=== PATIENT | male | born 1975 | race Caucasian/White ===

== ENCOUNTER 2017-06-21 23:20 | Emergency (ER) | payer SELFPAY ==
[~2017-06-21] VITALS: Ht 177.8 cm; Wt 81.8 kg
[2017-06-21 23:22] VITALS: BP 147/89
== END 2017-06-22 00:10 | disposition left against medical advice (07) ==
LOC: ED 23:59
DX: R10.9 Unspecified abdominal pain (principal); R19.7 Diarrhea, unspecified; Z53.21 Procedure and treatment not carried out due to patient leaving prior to being seen by health care provider

== ENCOUNTER 2017-06-23 03:10 | Emergency (ER) | payer SELFPAY ==
[~2017-06-23] VITALS: Ht 188 cm; Wt 82.2 kg
[2017-06-23] MEDS ORDERED: LORazepam 1MG TABLET ONE (03:40)
[2017-06-23] MEDS ORDERED: KETOROLAC 30 MG/1 ML ONE (03:40)
[2017-06-23 03:50] LABS: HEMATOCRIT 38.4 % (39.2-51.8); HEMOGLOBIN 12.9 g/dL (13.7-18.0); WHITE BLOOD COUNT 7.1 x10^3/uL (3.4-10)
[2017-06-23 03:58] LABS: BLOOD UREA NITROGEN 11 mg/dL (7-18)
[2017-06-23] MEDS ORDERED: LORazepam 1MG TABLET PO ONE (04:00)
[2017-06-23] MEDS ORDERED: KETOROLAC 30 MG/1 ML IM ONE (04:00)
[2017-06-23 04:04] LABS: IS PT STATUS REG ER OR PRE ER? YES
[2017-06-23 04:18] VITALS: BP 124/72
== END 2017-06-23 04:24 | disposition home or self-care (01) ==
LOC: ED 03:59
DX: R07.89 Other chest pain (principal); R51 Headache; F15.10 Other stimulant abuse, uncomplicated; B19.20 Unspecified viral hepatitis C without hepatic coma
CPT/HCPCS: 36415; 71020; 80048; 84484; 85025; 93005; 96372; 99285; J1885

== ENCOUNTER 2017-06-23 12:47 | Emergency (ER) | payer SELFPAY ==
[~2017-06-23] VITALS: Ht 185.4 cm; Wt 85.0 kg
[2017-06-23] MEDS ORDERED: SODIUM CHLORIDE FLUSH 10ML SYR IVF ONE (13:30)
[2017-06-23] MEDS ORDERED: ASPIRIN 81 MG TABLET CHEW PO ONE (13:30)
[2017-06-23 13:34] LABS: HEMATOCRIT 37.2 % (39.2-51.8); HEMOGLOBIN 12.3 g/dL (13.7-18.0); WHITE BLOOD COUNT 7.1 x10^3/uL (3.4-10)
[2017-06-23] MEDS ORDERED: ASPIRIN 81 MG TABLET CHEW ONE (13:35)
[2017-06-23 13:46] LABS: BLOOD UREA NITROGEN 13 mg/dL (7-18)
[2017-06-23 13:50] LABS: IS PT STATUS REG ER OR PRE ER? YES
[2017-06-23] MEDS ORDERED: ONDANSETRON 2MG/ML, 2ML ONE (14:17)
[2017-06-23] MEDS ORDERED: MORPHINE SULFATE 4 MG/ML, 1ML ONE ×2 (14:17→14:44)
[2017-06-23] MEDS: MORPHINE SULFATE 4 MG/ML, 1ML IVPush PRN ×2 (14:20→14:50)
[2017-06-23] MEDS ORDERED: OMNIPAQUE 350 MG/ML, 100ML BOTTLE ONE (14:57)
[2017-06-23 15:23] VITALS: BP 128/77
[2017-06-23] MEDS ORDERED: MAGNESIUM CITRATE 300ML ORAL SOL ONE (15:29)
[2017-06-23] MEDS ORDERED: MAGNESIUM CITRATE 300ML ORAL SOL PO ONE (15:30)
== END 2017-06-23 15:25 | disposition home or self-care (01) ==
LOC: ED 13:42
DX: K59.00 Constipation, unspecified (principal); F17.200 Nicotine dependence, unspecified, uncomplicated; B19.20 Unspecified viral hepatitis C without hepatic coma
CPT/HCPCS: 36415; 71010; 71275; 74177; 80048; 80076; 82040; 83690; 84484; 85025; 93005; 96374; 99285; Q9967

== ENCOUNTER 2017-06-24 10:52 | Inpatient (IN) | payer MEDICAID, OTHER ==
[~2017-06-24] VITALS: Ht 185.4 cm; Wt 84.1 kg
[2017-06-24] MEDS ORDERED: IBUPROFEN 200 MG TABLET ONE (12:48)
[2017-06-24] MEDS ORDERED: ONDANSETRON 2MG/ML, 2ML ONE (12:48)
[2017-06-24] MEDS ORDERED: SODIUM CHLORIDE FLUSH 10ML SYR IVF ONE (13:00)
[2017-06-24] MEDS ORDERED: IBUPROFEN 200 MG TABLET PO ONE (13:00)
[2017-06-24] MEDS ORDERED: SODIUM CHLORIDE 0.9% 1,000ML IVBOLUS ONE ×2 (13:00→14:00)
[2017-06-24] MEDS ORDERED: ONDANSETRON 2MG/ML, 2ML IVPush ONE (13:00)
[2017-06-24 13:12] LABS: HEMATOCRIT 38.3 % (39.2-51.8); HEMOGLOBIN 12.7 g/dL (13.7-18.0); WHITE BLOOD COUNT 8.7 x10^3/uL (3.4-10)
[2017-06-24 13:16] LABS: BLOOD UREA NITROGEN 9 mg/dL (7-18)
[2017-06-24] MEDS ORDERED: ACETAMINOPHEN 500 MG TABLET ONE (14:00)
[2017-06-24] MEDS ORDERED: ACETAMINOPHEN 500 MG TABLET PO ONE (14:00)
[2017-06-24] MEDS ORDERED: MORPHINE SULFATE 4 MG/ML, 1ML ONE ×2 (15:22→16:32)
[2017-06-24] MEDS: MORPHINE SULFATE 4 MG/ML, 1ML IVPush PRN ×2 (15:25→17:06)
[2017-06-24] MEDS ORDERED: CEFTRIAXONE PMX 1GM/50ML 50 ML IV ONE (16:00)
[2017-06-24] MEDS ORDERED: CEFTRIAXONE PMX 1GM/50ML 50 ML ONE (16:32)
[2017-06-24] MEDS ORDERED: OMNIPAQUE 350 MG/ML, 100ML BOTTLE ONE (16:36)
[2017-06-24] MEDS ORDERED: AZITHROMYCIN 500 MG in SODIUM CHLORIDE 0.9% 250 ML IV ONE (17:00)
[2017-06-24] MEDS ORDERED: hydrALAzine 20 MG/ML, 1ML IVPush PRN (18:00)
[2017-06-24] MEDS ORDERED: CEFTRIAXONE PMX 2GM/50ML 50 ML IV SCH (18:00)
[2017-06-24] MEDS ORDERED: ONDANSETRON 2MG/ML, 2ML IVPush PRN (18:00)
[2017-06-24] MEDS ORDERED: ACETAMINOPHEN 325 MG TABLET PO PRN (18:00)
[2017-06-24 18:37] LABS: HIV 1&2 ANTIBODY SCREEN Nonreactive (Nonreactive); HIV-1 p24 ANTIGEN Nonreactive (Nonreactive)
[2017-06-24 20:29] VITALS: BP 128/85
[2017-06-24] MEDS: SODIUM CHLORIDE 0.9% 1,000 ML IV SCH (20:33)
[2017-06-24] MEDS: morphine SULFATE 10 MG/ML, 1ML IVPush PRN ×2 (20:33→23:47)
[2017-06-24] MEDS: NICOTINE 14MG/24 HR PATCH.TD24 TD SCH (20:44)
[2017-06-24] MEDS: LORazepam 2 MG/ML, 1ML IVPush PRN (21:30)
[2017-06-25] VITALS (7 sets, daily range): BP systolic 107–130; BP diastolic 72–82
[2017-06-25] MEDS: HYDROcodone/APAP 5/325 TABLET PO PRN ×4 (01:17→21:21)
[2017-06-25] MEDS: morphine SULFATE 10 MG/ML, 1ML IVPush PRN ×5 (03:17→23:22)
[2017-06-25] MEDS: SODIUM CHLORIDE 0.9% 1,000 ML IV SCH ×3 (03:19→16:20)
[2017-06-25] MEDS ORDERED: FLU VACC QS2017-18 (36MOS+) UP/PF 0.5 ML IM-VACC ONE (04:30)
[2017-06-25] MEDS ORDERED: PNEUMOCOCCAL 23 VACCINE IM-VACC ONE (04:30)
[2017-06-25 06:20] LABS: HEMATOCRIT 33.2 % (39.2-51.8); HEMOGLOBIN 11.1 g/dL (13.7-18.0); WHITE BLOOD COUNT 10.7 x10^3/uL (3.4-10)
[2017-06-25 06:40] LABS: ASPARTATE AMINO TRANSFERASE 11 U/L (15-37); BLOOD UREA NITROGEN 7 mg/dL (7-18); TOTAL IRON BINDING CAPACITY 315 mcg/dL (250-450)
[2017-06-25] MEDS ORDERED: VANCOMYCIN PER PHARMACY MC PRN (14:30)
[2017-06-25] MEDS ORDERED: VANCOMYCIN 0 MG in SODIUM CHLORIDE 0.9% 100 ML IV ONE (14:30)
[2017-06-25] MEDS ORDERED: PHARMACOKINETIC CONSULTATION MC ONE (15:00)
[2017-06-25] MEDS ORDERED: PHARMACOKINETIC MONITORING MC PRN (15:00)
[2017-06-25] MEDS: LORazepam 2 MG/ML, 1ML IVPush PRN (15:09)
[2017-06-25] MEDS ORDERED: POTASSIUM PHOSPHATE 44 MEQ in SODIUM CHLORIDE 0.9% 500 ML IV ONE (16:00)
[2017-06-25] MEDS ORDERED: AZITHROMYCIN 500 MG in SODIUM CHLORIDE 0.9% 250 ML IV SCH (17:00)
[2017-06-25] MEDS ORDERED: GADOBUTROL 7.5 MMOL/7.5 ML PFS ONE (17:12)
[2017-06-25] MEDS: NICOTINE 14MG/24 HR PATCH.TD24 TD SCH (17:59)
[2017-06-25] MEDS: PIPERACILLIN/TAZO/PMX 3.375GM 50 ML IV SCH (17:59)
[2017-06-25] MEDS: VANCOMYCIN 1,600 MG in SODIUM CHLORIDE 0.9% 250 ML IV SCH (18:19)
[2017-06-26] MEDS: PIPERACILLIN/TAZO/PMX 3.375GM 50 ML IV SCH ×4 (00:05→18:22)
[2017-06-26] MEDS: SODIUM CHLORIDE 0.9% 1,000 ML IV SCH ×3 (00:05→18:21)
[2017-06-26 00:20] VITALS: BP 118/78
[2017-06-26] MEDS: morphine SULFATE 10 MG/ML, 1ML IVPush PRN ×4 (04:05→19:22)
[2017-06-26 06:12] LABS: HEMATOCRIT 32.7 % (39.2-51.8); HEMOGLOBIN 10.9 g/dL (13.7-18.0)
[2017-06-26 06:22] LABS: BLOOD UREA NITROGEN 11 mg/dL (7-18)
[2017-06-26] MEDS: HYDROcodone/APAP 5/325 TABLET PO PRN ×2 (07:05→18:22)
[2017-06-26] MEDS: VANCOMYCIN 1,600 MG in SODIUM CHLORIDE 0.9% 250 ML IV SCH ×2 (07:05→19:23)
[2017-06-26 07:59] VITALS: BP 128/88
[2017-06-26 12:22] LABS: HEMATOCRIT 33.9 % (39.2-51.8); HEMOGLOBIN 11.2 g/dL (13.7-18.0); WHITE BLOOD COUNT 8.3 x10^3/uL (3.4-10)
[2017-06-26 14:45] VITALS: BP 126/85
[2017-06-26] MEDS: NICOTINE 14MG/24 HR PATCH.TD24 TD SCH (18:00)
[2017-06-26] MEDS: FERROUS SULFATE 325 MG TABLET PO SCH (18:22)
[2017-06-26 19:52] VITALS: BP 130/80
[2017-06-26] MEDS ORDERED: VANCOMYCIN PER PHARMACY MC PRN (20:00)
[2017-06-26] MEDS ORDERED: ACETAMINOPHEN 325 MG TABLET PO PRN (20:00)
[2017-06-26] MEDS ORDERED: ONDANSETRON 2MG/ML, 2ML IVPush PRN (20:00)
[2017-06-26] MEDS ORDERED: hydrALAzine 20 MG/ML, 1ML IVPush PRN (20:00)
[2017-06-26] MEDS ORDERED: PHARMACOKINETIC MONITORING MC PRN (20:00)
[2017-06-27] MEDS: HYDROcodone/APAP 5/325 TABLET PO PRN ×4 (00:30→17:12)
[2017-06-27] MEDS: SODIUM CHLORIDE 0.9% 1,000 ML IV SCH ×3 (00:31→20:55)
[2017-06-27] MEDS: PIPERACILLIN/TAZO/PMX 3.375GM 50 ML IV SCH ×2 (00:31→06:29)
[2017-06-27 01:05] VITALS: BP 125/75
[2017-06-27] MEDS: morphine SULFATE 10 MG/ML, 1ML IVPush PRN ×5 (02:53→20:56)
[2017-06-27 06:24] LABS: HEMATOCRIT 33.1 % (39.2-51.8); WHITE BLOOD COUNT 6.3 x10^3/uL (3.4-10)
[2017-06-27 06:36] LABS: ASPARTATE AMINO TRANSFERASE 18 U/L (15-37); BLOOD UREA NITROGEN 10 mg/dL (7-18)
[2017-06-27] MEDS: VANCOMYCIN 1,600 MG in SODIUM CHLORIDE 0.9% 250 ML IV SCH (07:58)
[2017-06-27] MEDS: FERROUS SULFATE 325 MG TABLET PO SCH ×3 (07:58→17:11)
[2017-06-27 08:08] VITALS: BP 117/80
[2017-06-27] MEDS: CEFAZOLIN PMX 2GM/50ML 50 ML IVPB SCH ×2 (11:30→20:55)
[2017-06-27 14:30] VITALS: BP 118/78
[2017-06-27] MEDS: NICOTINE 14MG/24 HR PATCH.TD24 TD SCH (17:12)
[2017-06-27 19:59] VITALS: BP 129/81
[2017-06-28] MEDS: morphine SULFATE 10 MG/ML, 1ML IVPush PRN ×8 (00:10→23:43)
[2017-06-28] MEDS: HYDROcodone/APAP 5/325 TABLET PO PRN ×2 (02:11→14:58)
[2017-06-28 02:36] VITALS: BP 127/84
[2017-06-28] MEDS: CEFAZOLIN PMX 2GM/50ML 50 ML IVPB SCH ×3 (04:57→20:46)
[2017-06-28 08:00] VITALS: BP 120/81
[2017-06-28] MEDS: SODIUM CHLORIDE 0.9% 1,000 ML IV SCH ×2 (09:42→14:40)
[2017-06-28] MEDS: FERROUS SULFATE 325 MG TABLET PO SCH ×3 (09:42→16:49)
[2017-06-28] MEDS ORDERED: GADOBUTROL 10 MMOL/10 ML PFS ONE (11:49)
[2017-06-28] MEDS: NICOTINE 14MG/24 HR PATCH.TD24 TD SCH (16:49)
[2017-06-28 18:27] VITALS: BP 121/82
[2017-06-28 19:58] VITALS: BP 119/76
[2017-06-29 02:38] VITALS: BP 126/85
[2017-06-29] MEDS: morphine SULFATE 10 MG/ML, 1ML IVPush PRN ×6 (03:06→22:43)
[2017-06-29] MEDS: CEFAZOLIN PMX 2GM/50ML 50 ML IVPB SCH ×3 (05:13→21:04)
[2017-06-29 08:20] VITALS: BP 124/76
[2017-06-29] MEDS: FERROUS SULFATE 325 MG TABLET PO SCH ×3 (08:24→16:58)
[2017-06-29] MEDS: POLYETHYLENE GLYCOL 17 GM PACKET PO SCH (12:04)
[2017-06-29] MEDS: ENOXAPARIN 40 MG/0.4 ML SQ SCH (12:04)
[2017-06-29 14:40] VITALS: BP 123/73
[2017-06-29] MEDS: NICOTINE 14MG/24 HR PATCH.TD24 TD SCH (16:58)
[2017-06-29 20:59] VITALS: BP 114/78
[2017-06-30 02:18] VITALS: BP 108/73
[2017-06-30 02:59] VITALS: BP 103/72
[2017-06-30] MEDS: morphine SULFATE 10 MG/ML, 1ML IVPush PRN ×6 (02:59→21:29)
[2017-06-30] MEDS: CEFAZOLIN PMX 2GM/50ML 50 ML IVPB SCH ×3 (05:55→21:29)
[2017-06-30] MEDS: POLYETHYLENE GLYCOL 17 GM PACKET PO SCH (08:17)
[2017-06-30] MEDS: FERROUS SULFATE 325 MG TABLET PO SCH ×3 (08:17→17:40)
[2017-06-30 08:23] VITALS: BP 103/67
[2017-06-30] MEDS: ENOXAPARIN 40 MG/0.4 ML SQ SCH (11:35)
[2017-06-30 14:54] VITALS: BP 108/72
[2017-06-30] MEDS: NICOTINE 14MG/24 HR PATCH.TD24 TD SCH (17:40)
[2017-06-30 20:10] VITALS: BP 104/66
[2017-07-01] MEDS: morphine SULFATE 10 MG/ML, 1ML IVPush PRN ×7 (00:53→21:36)
[2017-07-01 01:58] VITALS: BP 111/75
[2017-07-01] MEDS: CEFAZOLIN PMX 2GM/50ML 50 ML IVPB SCH ×3 (05:13→23:54)
[2017-07-01] MEDS: POLYETHYLENE GLYCOL 17 GM PACKET PO SCH (08:08)
[2017-07-01] MEDS: FERROUS SULFATE 325 MG TABLET PO SCH ×3 (08:09→18:33)
[2017-07-01 08:30] VITALS: BP 124/78
[2017-07-01] MEDS: HYDROcodone/APAP 5/325 TABLET PO PRN (08:50)
[2017-07-01] MEDS: ENOXAPARIN 40 MG/0.4 ML SQ SCH (12:07)
[2017-07-01 14:30] VITALS: BP 114/75
[2017-07-01] MEDS: NICOTINE 14MG/24 HR PATCH.TD24 TD SCH (18:32)
[2017-07-01 19:52] VITALS: BP 118/74
[2017-07-02] MEDS: morphine SULFATE 10 MG/ML, 1ML IVPush PRN ×7 (01:34→21:29)
[2017-07-02 03:55] VITALS: BP 123/81
[2017-07-02 08:30] VITALS: BP 114/78
[2017-07-02] MEDS: CEFAZOLIN PMX 2GM/50ML 50 ML IVPB SCH ×3 (08:38→23:50)
[2017-07-02] MEDS: FERROUS SULFATE 325 MG TABLET PO SCH ×3 (08:38→18:34)
[2017-07-02] MEDS: POLYETHYLENE GLYCOL 17 GM PACKET PO SCH (08:45)
[2017-07-02] MEDS: HYDROcodone/APAP 5/325 TABLET PO PRN ×2 (10:10→23:50)
[2017-07-02] MEDS: ENOXAPARIN 40 MG/0.4 ML SQ SCH (12:39)
[2017-07-02 14:30] VITALS: BP 111/68
[2017-07-02] MEDS: NICOTINE 14MG/24 HR PATCH.TD24 TD SCH (18:35)
[2017-07-02 21:08] VITALS: BP 120/76
[2017-07-03] MEDS: morphine SULFATE 10 MG/ML, 1ML IVPush PRN ×8 (00:36→21:29)
[2017-07-03 01:27] VITALS: BP 118/78
[2017-07-03] MEDS: POLYETHYLENE GLYCOL 17 GM PACKET PO SCH (08:03)
[2017-07-03] MEDS: CEFAZOLIN PMX 2GM/50ML 50 ML IVPB SCH ×3 (08:03→23:15)
[2017-07-03] MEDS: FERROUS SULFATE 325 MG TABLET PO SCH ×3 (08:03→18:30)
[2017-07-03 08:13] VITALS: BP 119/80
[2017-07-03] MEDS: ENOXAPARIN 40 MG/0.4 ML SQ SCH (12:32)
[2017-07-03] MEDS: NICOTINE 14MG/24 HR PATCH.TD24 TD SCH (14:00)
[2017-07-03 14:30] VITALS: BP 104/69
[2017-07-03] MEDS ORDERED: ACETAMINOPHEN 325 MG TABLET PO PRN (19:30)
[2017-07-03] MEDS ORDERED: hydrALAzine 20 MG/ML, 1ML IVPush PRN (19:30)
[2017-07-03 20:25] VITALS: BP 123/76
[2017-07-04 00:46] VITALS: BP 116/71
[2017-07-04] MEDS: morphine SULFATE 10 MG/ML, 1ML IVPush PRN ×3 (00:48→07:55)
[2017-07-04] MEDS: CEFAZOLIN PMX 2GM/50ML 50 ML IVPB SCH (07:55)
[2017-07-04] MEDS: FERROUS SULFATE 325 MG TABLET PO SCH (07:55)
[2017-07-04] MEDS: POLYETHYLENE GLYCOL 17 GM PACKET PO SCH (07:55)
[2017-07-04 08:02] VITALS: BP 112/79
[2017-07-04] MEDS ORDERED: MUPIROCIN OINT 2%, 22GM TP SCH (09:00)
== END 2017-07-04 11:10 | disposition left against medical advice (07) | DRG 871 ==
LOC: ED 14:33 → EDIP 17:01 → SUATTDRO 17:05 → 3NE 20:00
PROVIDERS: ADMIT Internal Medicine; ATTEND Internal Medicine
DX: A41.01 Sepsis due to Methicillin susceptible Staphylococcus aureus (principal); J69.0 Pneumonitis due to inhalation of food and vomit; E43 Unspecified severe protein-calorie malnutrition; G06.1 Intraspinal abscess and granuloma; J90 Pleural effusion, not elsewhere classified; K68.12 Psoas muscle abscess; D50.9 Iron deficiency anemia, unspecified; F19.10 Other psychoactive substance abuse, uncomplicated; B19.10 Unspecified viral hepatitis B without hepatic coma; J98.11 Atelectasis; B19.20 Unspecified viral hepatitis C without hepatic coma; E83.39 Other disorders of phosphorus metabolism; G40.909 Epilepsy, unspecified, not intractable, without status epilepticus; L29.9 Pruritus, unspecified; M48.061 Spinal stenosis, lumbar region without neurogenic claudication; R65.20 Severe sepsis without septic shock; Z72.0 Tobacco use; Z86.14 Personal history of Methicillin resistant Staphylococcus aureus infection; R07.2 Precordial pain; Z68.24 Body mass index [BMI] 24.0-24.9, adult
CPT/HCPCS: 36415; 71010; 71275; 72157; 72158; 80048; 80053; 81001; 82040; 83540; 83550; 83605; 83735; 84100; 84145; 84439; 84484; 85025; 85651; 86140; 86703; 86704; 86706; 86708; 86709; 86803; 87040; 87077; 87081; 87147; 87186; 87340; 87899; 90686; 90732; 93005; 93306; 96361; 96365; 96375; 96376; A9585; J0456; J0690; J0696; J1650; J2405; J2543; J3370; Q9967; G0435; J2060; J2270; J7030; J7040; J7050

== ENCOUNTER 2017-07-04 14:52 | Inpatient (IN) | payer MEDICAID, OTHER ==
[~2017-07-04] VITALS: Ht 185.4 cm; Wt 96.8 kg
[2017-07-04 15:27] LABS: HEMATOCRIT 34.7 % (39.2-51.8); HEMOGLOBIN 11.4 g/dL (13.7-18.0); WHITE BLOOD COUNT 8.9 x10^3/uL (3.4-10)
[2017-07-04] MEDS ORDERED: SODIUM CHLORIDE FLUSH 10ML SYR IVF ONE (15:30)
[2017-07-04 15:38] LABS: BLOOD UREA NITROGEN 20 mg/dL (7-18)
[2017-07-04 16:06] LABS: DAU SCREEN DISCLAIMER
[2017-07-04] MEDS ORDERED: SODIUM CHLORIDE 0.9% 1,000 ML IV ONE (16:14)
[2017-07-04] MEDS ORDERED: ONDANSETRON 2MG/ML, 2ML IVPush PRN (16:30)
[2017-07-04] MEDS ORDERED: MORPHINE SULFATE 4 MG/ML, 1ML IVPush PRN (16:30)
[2017-07-04] MEDS ORDERED: MORPHINE SULFATE 4 MG/ML, 1ML ONE (16:52)
[2017-07-04] MEDS ORDERED: ONDANSETRON 2MG/ML, 2ML ONE (16:52)
[2017-07-04] MEDS ORDERED: GUAIFENESIN/DM 200-20MG, 10ML UDC PO PRN (19:30)
[2017-07-04] MEDS ORDERED: LABETALOL 5MG/ML, 20ML IVPush PRN (19:30)
[2017-07-04] MEDS ORDERED: POLYETHYLENE GLYCOL 17 GM PACKET PO PRN (19:30)
[2017-07-04] MEDS ORDERED: hydrALAzine 20 MG/ML, 1ML IV PRN (19:30)
[2017-07-04 20:22] VITALS: BP 125/83
[2017-07-04] MEDS: FAMOTIDINE 20 MG/2 ML IVPush SCH (20:24)
[2017-07-04] MEDS: HEPARIN 5,000 UNITS/ML, 1ML SQ SCH (20:24)
[2017-07-04] MEDS: CEFAZOLIN PMX 2GM/50ML 50 ML IV SCH (20:24)
[2017-07-04] MEDS: ALBUTEROL SULFATE 2.5 MG/3 ML NPPB SCH (20:27)
[2017-07-04] MEDS: MUPIROCIN OINT 2%, 22GM TP SCH (20:44)
[2017-07-05 00:51] VITALS: BP 121/81
[2017-07-05] MEDS: HEPARIN 5,000 UNITS/ML, 1ML SQ SCH ×3 (03:22→20:19)
[2017-07-05] MEDS: CEFAZOLIN PMX 2GM/50ML 50 ML IV SCH ×3 (03:22→20:19)
[2017-07-05 08:10] VITALS: BP 109/70
[2017-07-05] MEDS: MUPIROCIN OINT 2%, 22GM TP SCH ×3 (09:48→20:19)
[2017-07-05] MEDS: FAMOTIDINE 20 MG/2 ML IVPush SCH ×2 (09:48→20:19)
[2017-07-05] MEDS: SENNA/DOCUSATE TABLET PO SCH (09:49)
[2017-07-05] MEDS: FERROUS SULFATE 325 MG TABLET PO SCH ×3 (09:49→17:32)
[2017-07-05] MEDS: ALBUTEROL SULFATE 2.5 MG/3 ML NPPB SCH ×3 (11:10→20:10)
[2017-07-05 14:35] VITALS: BP 106/69
[2017-07-05] MEDS: MORPHINE SULFATE 4 MG/ML, 1ML IVPush PRN ×2 (15:49→20:18)
[2017-07-05 19:42] VITALS: BP 114/72
[2017-07-06] MEDS: MORPHINE SULFATE 4 MG/ML, 1ML IVPush PRN ×5 (02:22→19:58)
[2017-07-06] MEDS: HEPARIN 5,000 UNITS/ML, 1ML SQ SCH ×3 (02:22→19:59)
[2017-07-06] MEDS: CEFAZOLIN PMX 2GM/50ML 50 ML IV SCH ×3 (02:22→19:59)
[2017-07-06 02:40] VITALS: BP 121/78
[2017-07-06 08:22] VITALS: BP 121/79
[2017-07-06] MEDS: ALBUTEROL SULFATE 2.5 MG/3 ML NPPB SCH ×3 (08:47→21:00)
[2017-07-06] MEDS: SENNA/DOCUSATE TABLET PO SCH (09:00)
[2017-07-06] MEDS: FERROUS SULFATE 325 MG TABLET PO SCH ×3 (09:42→17:47)
[2017-07-06] MEDS: FAMOTIDINE 20 MG/2 ML IVPush SCH ×2 (09:43→19:59)
[2017-07-06] MEDS: MUPIROCIN OINT 2%, 22GM TP SCH ×3 (09:43→19:58)
[2017-07-06 15:54] VITALS: BP 118/77
[2017-07-06 19:34] VITALS: BP 119/79
[2017-07-07] MEDS: MORPHINE SULFATE 4 MG/ML, 1ML IVPush PRN ×6 (00:45→20:37)
[2017-07-07 01:55] VITALS: BP 112/72
[2017-07-07] MEDS: HEPARIN 5,000 UNITS/ML, 1ML SQ SCH ×3 (04:40→20:11)
[2017-07-07] MEDS: CEFAZOLIN PMX 2GM/50ML 50 ML IV SCH ×3 (04:40→20:10)
[2017-07-07] MEDS: FAMOTIDINE 20 MG/2 ML IVPush SCH ×2 (08:20→20:37)
[2017-07-07] MEDS: FERROUS SULFATE 325 MG TABLET PO SCH ×3 (08:20→16:39)
[2017-07-07] MEDS: MUPIROCIN OINT 2%, 22GM TP SCH ×3 (08:21→20:37)
[2017-07-07] MEDS: SENNA/DOCUSATE TABLET PO SCH (08:22)
[2017-07-07 08:28] VITALS: BP 118/79
[2017-07-07 19:44] VITALS: BP 104/69
[2017-07-07] MEDS ORDERED: ALBUTEROL SULFATE 2.5 MG/3 ML NPPB PRN (21:00)
[2017-07-08] MEDS: MORPHINE SULFATE 4 MG/ML, 1ML IVPush PRN ×6 (01:56→22:43)
[2017-07-08 01:58] VITALS: BP 111/77
[2017-07-08] MEDS: CEFAZOLIN PMX 2GM/50ML 50 ML IV SCH ×3 (03:38→19:51)
[2017-07-08] MEDS: HEPARIN 5,000 UNITS/ML, 1ML SQ SCH ×3 (03:38→19:27)
[2017-07-08 07:21] VITALS: BP 108/72
[2017-07-08] MEDS: SENNA/DOCUSATE TABLET PO SCH (08:29)
[2017-07-08] MEDS: FERROUS SULFATE 325 MG TABLET PO SCH ×3 (08:29→16:34)
[2017-07-08] MEDS: FAMOTIDINE 20 MG/2 ML IVPush SCH ×2 (08:29→21:05)
[2017-07-08] MEDS: MUPIROCIN OINT 2%, 22GM TP SCH ×3 (08:30→22:42)
[2017-07-08 13:27] VITALS: BP 114/77
[2017-07-08] MEDS: METHADONE 10 MG TABLET PO SCH ×2 (16:34→21:05)
[2017-07-08 20:26] VITALS: BP 115/70
[2017-07-09 02:15] VITALS: BP 106/68
[2017-07-09] MEDS: HEPARIN 5,000 UNITS/ML, 1ML SQ SCH ×3 (03:23→19:33)
[2017-07-09] MEDS: MORPHINE SULFATE 4 MG/ML, 1ML IVPush PRN ×5 (03:23→20:13)
[2017-07-09] MEDS: CEFAZOLIN PMX 2GM/50ML 50 ML IV SCH ×3 (03:23→19:32)
[2017-07-09 07:18] VITALS: BP 106/72
[2017-07-09] MEDS: MUPIROCIN OINT 2%, 22GM TP SCH ×3 (07:39→21:17)
[2017-07-09] MEDS: FAMOTIDINE 20 MG/2 ML IVPush SCH ×2 (07:39→21:00)
[2017-07-09] MEDS: FERROUS SULFATE 325 MG TABLET PO SCH ×3 (07:39→16:43)
[2017-07-09] MEDS: SENNA/DOCUSATE TABLET PO SCH (07:40)
[2017-07-09] MEDS: METHADONE 10 MG TABLET PO SCH ×3 (09:32→21:17)
[2017-07-09 13:19] VITALS: BP 116/72
[2017-07-09 20:42] VITALS: BP 110/68
[2017-07-09] MEDS: FAMOTIDINE 20 MG TABLET PO SCH (22:00)
[2017-07-10] MEDS: MORPHINE SULFATE 4 MG/ML, 1ML IVPush PRN ×5 (02:19→21:23)
[2017-07-10 02:45] VITALS: BP 123/78
[2017-07-10] MEDS: CEFAZOLIN PMX 2GM/50ML 50 ML IV SCH ×3 (03:11→21:23)
[2017-07-10] MEDS: HEPARIN 5,000 UNITS/ML, 1ML SQ SCH ×3 (03:13→21:22)
[2017-07-10 07:19] VITALS: BP 121/89
[2017-07-10] MEDS: FERROUS SULFATE 325 MG TABLET PO SCH ×3 (07:53→16:58)
[2017-07-10] MEDS: FAMOTIDINE 20 MG TABLET PO SCH ×2 (09:43→21:23)
[2017-07-10] MEDS: MUPIROCIN OINT 2%, 22GM TP SCH ×3 (09:43→21:23)
[2017-07-10] MEDS: SENNA/DOCUSATE TABLET PO SCH (09:43)
[2017-07-10] MEDS: METHADONE 10 MG TABLET PO SCH ×3 (09:43→21:23)
[2017-07-10 13:51] VITALS: BP 108/68
[2017-07-10 19:22] VITALS: BP 114/68
[2017-07-11 01:30] VITALS: BP 111/75
[2017-07-11] MEDS ORDERED: morphine SULFATE 10 MG/ML, 1ML ONE ×2 (03:27→08:14)
[2017-07-11] MEDS: CEFAZOLIN PMX 2GM/50ML 50 ML IV SCH ×3 (03:33→21:14)
[2017-07-11] MEDS: HEPARIN 5,000 UNITS/ML, 1ML SQ SCH ×3 (03:34→21:14)
[2017-07-11] MEDS: MORPHINE SULFATE 4 MG/ML, 1ML IVPush PRN ×2 (03:34→08:19)
[2017-07-11] MEDS: FAMOTIDINE 20 MG TABLET PO SCH ×2 (08:10→21:14)
[2017-07-11] MEDS: SENNA/DOCUSATE TABLET PO SCH (08:10)
[2017-07-11] MEDS: MUPIROCIN OINT 2%, 22GM TP SCH ×3 (08:10→21:14)
[2017-07-11] MEDS: FERROUS SULFATE 325 MG TABLET PO SCH ×3 (08:10→17:11)
[2017-07-11] MEDS: METHADONE 10 MG TABLET PO SCH ×3 (08:18→21:14)
[2017-07-11] MEDS: OLANZAPINE 10 MG TABLET PO SCH (11:46)
[2017-07-11 12:57] VITALS: BP 119/76
[2017-07-11 20:56] VITALS: BP 134/81
[2017-07-12 03:59] VITALS: BP 122/78
[2017-07-12 05:12] LABS: BLOOD UREA NITROGEN 14 mg/dL (7-18)
[2017-07-12 05:17] LABS: HEMATOCRIT 35.5 % (39.2-51.8); HEMOGLOBIN 11.7 g/dL (13.7-18.0); WHITE BLOOD COUNT 5.1 x10^3/uL (3.4-10)
[2017-07-12] MEDS: CEFAZOLIN PMX 2GM/50ML 50 ML IV SCH ×3 (05:34→20:10)
[2017-07-12] MEDS: HEPARIN 5,000 UNITS/ML, 1ML SQ SCH ×3 (05:35→20:10)
[2017-07-12 08:40] VITALS: BP 114/73
[2017-07-12] MEDS: FERROUS SULFATE 325 MG TABLET PO SCH ×3 (09:33→16:24)
[2017-07-12] MEDS: SENNA/DOCUSATE TABLET PO SCH (09:33)
[2017-07-12] MEDS: METHADONE 10 MG TABLET PO SCH ×3 (09:33→20:10)
[2017-07-12] MEDS: FAMOTIDINE 20 MG TABLET PO SCH ×2 (09:33→20:10)
[2017-07-12] MEDS: MUPIROCIN OINT 2%, 22GM TP SCH ×3 (09:34→20:15)
[2017-07-12] MEDS: OLANZAPINE 10 MG TABLET PO SCH (09:34)
[2017-07-12 14:29] VITALS: BP 102/62
[2017-07-12 20:04] VITALS: BP 123/81
[2017-07-13 01:32] VITALS: BP 117/84
[2017-07-13] MEDS: HEPARIN 5,000 UNITS/ML, 1ML SQ SCH (05:44)
[2017-07-13] MEDS: CEFAZOLIN PMX 2GM/50ML 50 ML IV SCH ×3 (05:45→22:21)
[2017-07-13 08:33] VITALS: BP 124/74
[2017-07-13] MEDS: OLANZAPINE 10 MG TABLET PO SCH (09:00)
[2017-07-13] MEDS: SENNA/DOCUSATE TABLET PO SCH (09:41)
[2017-07-13] MEDS: FERROUS SULFATE 325 MG TABLET PO SCH ×3 (09:41→17:36)
[2017-07-13] MEDS: METHADONE 10 MG TABLET PO SCH ×3 (09:42→22:21)
[2017-07-13] MEDS: FAMOTIDINE 20 MG TABLET PO SCH ×2 (09:42→22:20)
[2017-07-13] MEDS: MUPIROCIN OINT 2%, 22GM TP SCH ×3 (12:42→22:22)
[2017-07-13 14:40] VITALS: BP 131/89
[2017-07-13 17:15] VITALS: BP 119/77
[2017-07-13] MEDS: KETOROLAC 30 MG/1 ML IVPush PRN ×2 (17:48→22:21)
[2017-07-13 21:08] VITALS: BP 128/87
[2017-07-14 02:00] VITALS: BP 113/80
[2017-07-14] MEDS: CEFAZOLIN PMX 2GM/50ML 50 ML IV SCH ×3 (05:27→21:43)
[2017-07-14 07:58] VITALS: BP 124/87
[2017-07-14] MEDS: METHADONE 10 MG TABLET PO SCH ×3 (09:14→20:15)
[2017-07-14] MEDS: SENNA/DOCUSATE TABLET PO SCH (09:14)
[2017-07-14] MEDS: FAMOTIDINE 20 MG TABLET PO SCH ×2 (09:14→20:15)
[2017-07-14] MEDS: FERROUS SULFATE 325 MG TABLET PO SCH ×3 (09:15→16:23)
[2017-07-14] MEDS: MUPIROCIN OINT 2%, 22GM TP SCH ×3 (09:15→20:15)
[2017-07-14] MEDS: OLANZAPINE 10 MG TABLET PO SCH (09:15)
[2017-07-14 12:58] VITALS: BP 123/88
[2017-07-14 19:03] VITALS: BP 127/88
[2017-07-15 02:40] VITALS: BP 121/84
[2017-07-15] MEDS: CEFAZOLIN PMX 2GM/50ML 50 ML IV SCH ×2 (05:08→17:21)
[2017-07-15 08:00] VITALS: BP 125/83
[2017-07-15] MEDS: MUPIROCIN OINT 2%, 22GM TP SCH ×3 (10:11→20:03)
[2017-07-15] MEDS: FERROUS SULFATE 325 MG TABLET PO SCH ×3 (10:12→17:21)
[2017-07-15] MEDS: METHADONE 10 MG TABLET PO SCH ×3 (10:12→20:03)
[2017-07-15] MEDS: FAMOTIDINE 20 MG TABLET PO SCH ×2 (10:12→17:21)
[2017-07-15] MEDS: OLANZAPINE 10 MG TABLET PO SCH (10:12)
[2017-07-15] MEDS: SENNA/DOCUSATE TABLET PO SCH (10:12)
[2017-07-15 14:00] VITALS: BP 124/83
[2017-07-15 20:36] VITALS: BP 128/75
[2017-07-16] MEDS: CEFAZOLIN PMX 2GM/50ML 50 ML IV SCH ×3 (00:31→18:24)
[2017-07-16 02:40] VITALS: BP 124/80
[2017-07-16 07:24] VITALS: BP 116/78
[2017-07-16] MEDS: OLANZAPINE 10 MG TABLET PO SCH (08:24)
[2017-07-16] MEDS: FERROUS SULFATE 325 MG TABLET PO SCH ×3 (08:37→18:25)
[2017-07-16] MEDS: MUPIROCIN OINT 2%, 22GM TP SCH ×3 (08:37→19:49)
[2017-07-16] MEDS: FAMOTIDINE 20 MG TABLET PO SCH ×2 (08:37→19:48)
[2017-07-16] MEDS: SENNA/DOCUSATE TABLET PO SCH (08:37)
[2017-07-16] MEDS: METHADONE 10 MG TABLET PO SCH ×3 (08:41→22:47)
[2017-07-16 13:45] VITALS: BP 124/70
[2017-07-16 20:09] VITALS: BP 125/91
[2017-07-17 00:50] VITALS: BP 136/91
[2017-07-17] MEDS: CEFAZOLIN PMX 2GM/50ML 50 ML IV SCH ×3 (01:24→18:44)
[2017-07-17 07:22] VITALS: BP 129/75
[2017-07-17 08:04] LABS: HEMATOCRIT 36.2 % (39.2-51.8); WHITE BLOOD COUNT 4.5 x10^3/uL (3.4-10)
[2017-07-17] MEDS: METHADONE 10 MG TABLET PO SCH ×3 (11:25→21:14)
[2017-07-17] MEDS: FERROUS SULFATE 325 MG TABLET PO SCH ×3 (11:25→15:56)
[2017-07-17] MEDS: SENNA/DOCUSATE TABLET PO SCH (11:25)
[2017-07-17] MEDS: FAMOTIDINE 20 MG TABLET PO SCH ×2 (11:25→21:14)
[2017-07-17] MEDS: MUPIROCIN OINT 2%, 22GM TP SCH ×3 (11:25→21:14)
[2017-07-17 12:12] VITALS: BP 126/83
[2017-07-17 19:38] VITALS: BP 123/77
[2017-07-18 01:39] VITALS: BP 140/92
[2017-07-18] MEDS: CEFAZOLIN PMX 2GM/50ML 50 ML IV SCH ×3 (03:14→18:46)
[2017-07-18 08:20] VITALS: BP 115/82
[2017-07-18] MEDS: FERROUS SULFATE 325 MG TABLET PO SCH ×3 (08:22→16:55)
[2017-07-18] MEDS: METHADONE 10 MG TABLET PO SCH ×3 (08:22→21:07)
[2017-07-18] MEDS: FAMOTIDINE 20 MG TABLET PO SCH ×2 (08:22→21:07)
[2017-07-18] MEDS: MUPIROCIN OINT 2%, 22GM TP SCH ×3 (08:23→21:07)
[2017-07-18] MEDS: SENNA/DOCUSATE TABLET PO SCH (08:23)
[2017-07-18 09:35] LABS: BLOOD UREA NITROGEN 14 mg/dL (7-18)
[2017-07-18 09:40] LABS: IS PT STATUS REG ER OR PRE ER? NO
[2017-07-18 14:50] VITALS: BP 127/84
[2017-07-18 19:16] LABS: BLOOD UREA NITROGEN 16 mg/dL (7-18)
[2017-07-18 19:25] VITALS: BP 100/57
[2017-07-19 01:23] VITALS: BP 110/73
[2017-07-19] MEDS: CEFAZOLIN PMX 2GM/50ML 50 ML IV SCH ×3 (03:17→20:07)
[2017-07-19 05:40] LABS: BLOOD UREA NITROGEN 16 mg/dL (7-18)
[2017-07-19 07:50] VITALS: BP 121/85
[2017-07-19] MEDS: METHADONE 10 MG TABLET PO SCH ×3 (08:32→20:57)
[2017-07-19] MEDS: FAMOTIDINE 20 MG TABLET PO SCH ×2 (08:32→20:57)
[2017-07-19] MEDS: SENNA/DOCUSATE TABLET PO SCH (08:32)
[2017-07-19] MEDS: FERROUS SULFATE 325 MG TABLET PO SCH ×3 (08:32→17:18)
[2017-07-19] MEDS: MUPIROCIN OINT 2%, 22GM TP SCH ×3 (08:33→20:57)
[2017-07-19 14:23] VITALS: BP 127/78
[2017-07-19 19:43] VITALS: BP 117/75
[2017-07-20] MEDS: ONDANSETRON 2MG/ML, 2ML IVPush PRN ×2 (01:21→07:58)
[2017-07-20 01:35] VITALS: BP 122/79
[2017-07-20] MEDS: CEFAZOLIN PMX 2GM/50ML 50 ML IV SCH ×3 (03:11→18:32)
[2017-07-20 07:10] VITALS: BP 117/76
[2017-07-20] MEDS: MUPIROCIN OINT 2%, 22GM TP SCH ×3 (07:53→20:47)
[2017-07-20] MEDS: METHADONE 10 MG TABLET PO SCH ×2 (07:53→16:00)
[2017-07-20] MEDS: FAMOTIDINE 20 MG TABLET PO SCH ×2 (07:53→20:47)
[2017-07-20] MEDS: FERROUS SULFATE 325 MG TABLET PO SCH ×3 (07:53→16:33)
[2017-07-20] MEDS: SENNA/DOCUSATE TABLET PO SCH (07:53)
[2017-07-20] MEDS: METHADONE 5 MG TABLET PO SCH ×2 (16:33→20:47)
[2017-07-20 17:40] VITALS: BP 105/70
[2017-07-20 19:11] VITALS: BP 124/80
[2017-07-20] MEDS ORDERED: METHADONE 5 MG TABLET PO SCH (21:00)
[2017-07-21 01:35] VITALS: BP 120/77
[2017-07-21] MEDS: CEFAZOLIN PMX 2GM/50ML 50 ML IV SCH ×3 (02:54→19:22)
[2017-07-21 07:59] VITALS: BP 120/79
[2017-07-21] MEDS ORDERED: METHADONE 10 MG TABLET ONE (08:53)
[2017-07-21] MEDS: FERROUS SULFATE 325 MG TABLET PO SCH ×3 (08:58→17:03)
[2017-07-21] MEDS: FAMOTIDINE 20 MG TABLET PO SCH ×2 (08:58→20:31)
[2017-07-21] MEDS: POLYETHYLENE GLYCOL 17 GM PACKET PO SCH (08:58)
[2017-07-21] MEDS: METHADONE 5 MG TABLET PO SCH ×4 (08:58→20:31)
[2017-07-21] MEDS: SENNA/DOCUSATE TABLET PO SCH (08:58)
[2017-07-21] MEDS: MUPIROCIN OINT 2%, 22GM TP SCH ×3 (08:59→20:31)
[2017-07-21] MEDS: ONDANSETRON ODT 4 MG PO PRN (12:27)
[2017-07-21 13:57] VITALS: BP 120/74
[2017-07-21] MEDS: ENOXAPARIN 40 MG/0.4 ML SQ SCH (17:03)
[2017-07-21 19:30] VITALS: BP 115/72
[2017-07-22 01:20] VITALS: BP 121/72
[2017-07-22] MEDS: CEFAZOLIN PMX 2GM/50ML 50 ML IV SCH ×3 (03:01→20:23)
[2017-07-22] MEDS: ONDANSETRON 2MG/ML, 2ML IVPush PRN (04:20)
[2017-07-22] MEDS: METHADONE 5 MG TABLET PO SCH ×3 (08:30→20:23)
[2017-07-22] MEDS: ONDANSETRON ODT 4 MG PO PRN (08:31)
[2017-07-22] MEDS: FERROUS SULFATE 325 MG TABLET PO SCH ×3 (08:31→16:51)
[2017-07-22] MEDS: FAMOTIDINE 20 MG TABLET PO SCH ×2 (08:31→20:23)
[2017-07-22] MEDS: SENNA/DOCUSATE TABLET PO SCH (08:31)
[2017-07-22] MEDS: MUPIROCIN OINT 2%, 22GM TP SCH ×3 (08:32→20:23)
[2017-07-22] MEDS: POLYETHYLENE GLYCOL 17 GM PACKET PO SCH (08:32)
[2017-07-22 08:54] VITALS: BP 116/75
[2017-07-22 13:11] VITALS: BP 127/79
[2017-07-22] MEDS: ENOXAPARIN 40 MG/0.4 ML SQ SCH (16:51)
[2017-07-22 20:12] VITALS: BP 114/73
[2017-07-23 01:23] VITALS: BP 112/72
[2017-07-23] MEDS: CEFAZOLIN PMX 2GM/50ML 50 ML IV SCH ×3 (03:46→19:56)
[2017-07-23 06:43] VITALS: BP 121/77
[2017-07-23] MEDS: METHADONE 5 MG TABLET PO SCH ×3 (09:00→21:00)
[2017-07-23] MEDS: MUPIROCIN OINT 2%, 22GM TP SCH ×3 (09:00→19:56)
[2017-07-23] MEDS: POLYETHYLENE GLYCOL 17 GM PACKET PO SCH (09:00)
[2017-07-23] MEDS: FERROUS SULFATE 325 MG TABLET PO SCH ×3 (10:26→14:52)
[2017-07-23] MEDS: FAMOTIDINE 20 MG TABLET PO SCH ×2 (10:27→21:19)
[2017-07-23] MEDS: SENNA/DOCUSATE TABLET PO SCH (10:27)
[2017-07-23 12:54] VITALS: BP 120/76
[2017-07-23] MEDS: ENOXAPARIN 40 MG/0.4 ML SQ SCH (17:00)
[2017-07-23 19:45] VITALS: BP 113/75
[2017-07-24 03:19] VITALS: BP 110/61
[2017-07-24] MEDS: CEFAZOLIN PMX 2GM/50ML 50 ML IV SCH ×2 (03:59→12:32)
[2017-07-24 07:33] VITALS: BP 119/79
[2017-07-24] MEDS: METHADONE 5 MG TABLET PO SCH ×2 (09:00→16:31)
[2017-07-24] MEDS ORDERED: LORazepam 2 MG/ML, 1ML IVPush ONE ×2 (09:00→09:30)
[2017-07-24] MEDS: MUPIROCIN OINT 2%, 22GM TP SCH ×3 (09:19→20:30)
[2017-07-24] MEDS: POLYETHYLENE GLYCOL 17 GM PACKET PO SCH (09:21)
[2017-07-24] MEDS: FAMOTIDINE 20 MG TABLET PO SCH ×2 (09:21→20:30)
[2017-07-24] MEDS: FERROUS SULFATE 325 MG TABLET PO SCH ×3 (09:21→16:31)
[2017-07-24] MEDS: SENNA/DOCUSATE TABLET PO SCH (09:22)
[2017-07-24 14:13] VITALS: BP 100/63
[2017-07-24] MEDS: ENOXAPARIN 40 MG/0.4 ML SQ SCH (16:33)
[2017-07-24 19:51] VITALS: BP 129/78
[2017-07-24] MEDS: CEFAZOLIN 2,000 MG in DEXTROSE 5% 50 ML IV SCH (20:00)
[2017-07-24] MEDS: METHADONE 10 MG TABLET PO SCH (20:30)
[2017-07-25 01:57] VITALS: BP 108/66
[2017-07-25] MEDS: CEFAZOLIN 2,000 MG in DEXTROSE 5% 50 ML IV SCH ×3 (04:42→20:16)
[2017-07-25 07:48] VITALS: BP 141/78
[2017-07-25] MEDS: METHADONE 10 MG TABLET PO SCH ×3 (08:22→20:16)
[2017-07-25] MEDS: FERROUS SULFATE 325 MG TABLET PO SCH ×3 (08:22→17:51)
[2017-07-25] MEDS: SENNA/DOCUSATE TABLET PO SCH (08:22)
[2017-07-25] MEDS: FAMOTIDINE 20 MG TABLET PO SCH ×2 (08:22→20:16)
[2017-07-25] MEDS: POLYETHYLENE GLYCOL 17 GM PACKET PO SCH (08:22)
[2017-07-25] MEDS: MUPIROCIN OINT 2%, 22GM TP SCH ×3 (08:23→20:15)
[2017-07-25 14:35] VITALS: BP 122/83
[2017-07-25] MEDS: ENOXAPARIN 40 MG/0.4 ML SQ SCH (17:51)
[2017-07-25 21:02] VITALS: BP 127/83
[2017-07-26 00:36] VITALS: BP 113/77
[2017-07-26] MEDS: CEFAZOLIN 2,000 MG in DEXTROSE 5% 50 ML IV SCH ×3 (03:26→20:41)
[2017-07-26 06:41] VITALS: BP 105/71
[2017-07-26] MEDS: MUPIROCIN OINT 2%, 22GM TP SCH ×3 (08:00→20:41)
[2017-07-26] MEDS: FERROUS SULFATE 325 MG TABLET PO SCH ×3 (08:02→16:29)
[2017-07-26] MEDS: SENNA/DOCUSATE TABLET PO SCH (08:02)
[2017-07-26] MEDS: METHADONE 10 MG TABLET PO SCH ×3 (08:02→20:41)
[2017-07-26] MEDS: FAMOTIDINE 20 MG TABLET PO SCH ×2 (08:02→20:41)
[2017-07-26] MEDS: POLYETHYLENE GLYCOL 17 GM PACKET PO SCH (08:04)
[2017-07-26 12:48] VITALS: BP 121/80
[2017-07-26] MEDS: ENOXAPARIN 40 MG/0.4 ML SQ SCH (16:30)
[2017-07-26 19:45] VITALS: BP 119/76
[2017-07-27 01:25] VITALS: BP 110/75
[2017-07-27] MEDS: CEFAZOLIN 2,000 MG in DEXTROSE 5% 50 ML IV SCH ×3 (03:32→21:09)
[2017-07-27 08:00] VITALS: BP 109/75
[2017-07-27] MEDS: FERROUS SULFATE 325 MG TABLET PO SCH ×3 (08:06→17:39)
[2017-07-27] MEDS: FAMOTIDINE 20 MG TABLET PO SCH ×2 (08:06→21:09)
[2017-07-27] MEDS: MUPIROCIN OINT 2%, 22GM TP SCH ×3 (08:07→21:10)
[2017-07-27] MEDS: METHADONE 10 MG TABLET PO SCH ×3 (08:24→21:00)
[2017-07-27] MEDS: SENNA/DOCUSATE TABLET PO SCH (08:24)
[2017-07-27] MEDS: POLYETHYLENE GLYCOL 17 GM PACKET PO SCH (08:24)
[2017-07-27 13:29] VITALS: BP 111/81
[2017-07-27] MEDS: ENOXAPARIN 40 MG/0.4 ML SQ SCH (17:39)
[2017-07-27 19:52] VITALS: BP 123/81
[2017-07-28 00:54] VITALS: BP 119/77
[2017-07-28] MEDS: CEFAZOLIN 2,000 MG in DEXTROSE 5% 50 ML IV SCH ×3 (04:12→20:13)
[2017-07-28 07:45] VITALS: BP 123/76
[2017-07-28] MEDS: SENNA/DOCUSATE TABLET PO SCH (08:51)
[2017-07-28] MEDS: FERROUS SULFATE 325 MG TABLET PO SCH ×3 (08:51→17:50)
[2017-07-28] MEDS: FAMOTIDINE 20 MG TABLET PO SCH ×2 (08:51→20:13)
[2017-07-28] MEDS: POLYETHYLENE GLYCOL 17 GM PACKET PO SCH (08:52)
[2017-07-28] MEDS: METHADONE 10 MG TABLET PO SCH ×3 (08:52→20:10)
[2017-07-28] MEDS: MUPIROCIN OINT 2%, 22GM TP SCH ×3 (09:00→20:10)
[2017-07-28 14:53] VITALS: BP 123/76
[2017-07-28] MEDS: ENOXAPARIN 40 MG/0.4 ML SQ SCH (17:50)
[2017-07-28 19:57] VITALS: BP 122/78
[2017-07-29 03:58] VITALS: BP 116/80
[2017-07-29] MEDS: CEFAZOLIN 2,000 MG in DEXTROSE 5% 50 ML IV SCH ×3 (05:12→20:53)
[2017-07-29 07:33] VITALS: BP 106/70
[2017-07-29] MEDS: METHADONE 10 MG TABLET PO SCH ×3 (09:00→20:53)
[2017-07-29] MEDS: MUPIROCIN OINT 2%, 22GM TP SCH ×3 (09:00→20:56)
[2017-07-29] MEDS: POLYETHYLENE GLYCOL 17 GM PACKET PO SCH (10:31)
[2017-07-29] MEDS: FERROUS SULFATE 325 MG TABLET PO SCH ×3 (10:31→17:00)
[2017-07-29] MEDS: FAMOTIDINE 20 MG TABLET PO SCH ×2 (10:31→20:52)
[2017-07-29] MEDS: SENNA/DOCUSATE TABLET PO SCH (10:31)
[2017-07-29 13:05] VITALS: BP 130/90
[2017-07-29] MEDS: ENOXAPARIN 40 MG/0.4 ML SQ SCH (17:00)
[2017-07-29 18:54] VITALS: BP 119/75
[2017-07-30 00:47] VITALS: BP 119/80
[2017-07-30] MEDS: CEFAZOLIN 2,000 MG in DEXTROSE 5% 50 ML IV SCH ×3 (03:52→20:30)
[2017-07-30 07:00] VITALS: BP 131/95
[2017-07-30] MEDS: FERROUS SULFATE 325 MG TABLET PO SCH ×3 (08:00→17:00)
[2017-07-30] MEDS: SENNA/DOCUSATE TABLET PO SCH (09:00)
[2017-07-30] MEDS: FAMOTIDINE 20 MG TABLET PO SCH ×2 (09:00→20:30)
[2017-07-30] MEDS: POLYETHYLENE GLYCOL 17 GM PACKET PO SCH (09:00)
[2017-07-30] MEDS: MUPIROCIN OINT 2%, 22GM TP SCH ×3 (09:00→19:50)
[2017-07-30] MEDS: METHADONE 10 MG TABLET PO SCH ×4 (09:00→19:50)
[2017-07-30 15:30] VITALS: BP 122/82
[2017-07-30] MEDS: ENOXAPARIN 40 MG/0.4 ML SQ SCH (17:00)
[2017-07-30 18:37] VITALS: BP 138/91
[2017-07-31 01:47] VITALS: BP 106/62
[2017-07-31] MEDS: CEFAZOLIN 2,000 MG in DEXTROSE 5% 50 ML IV SCH ×3 (04:20→21:09)
[2017-07-31] MEDS: POLYETHYLENE GLYCOL 17 GM PACKET PO SCH (07:56)
[2017-07-31] MEDS: FAMOTIDINE 20 MG TABLET PO SCH ×2 (07:56→21:08)
[2017-07-31] MEDS: MUPIROCIN OINT 2%, 22GM TP SCH ×3 (07:56→18:55)
[2017-07-31] MEDS: METHADONE 10 MG TABLET PO SCH ×3 (07:56→21:00)
[2017-07-31] MEDS: FERROUS SULFATE 325 MG TABLET PO SCH ×3 (07:56→17:03)
[2017-07-31] MEDS: SENNA/DOCUSATE TABLET PO SCH (07:56)
[2017-07-31 16:34] VITALS: BP 121/85
[2017-07-31] MEDS: ENOXAPARIN 40 MG/0.4 ML SQ SCH (17:03)
[2017-07-31 19:44] VITALS: BP 119/77
[2017-08-01 03:16] VITALS: BP 108/73
[2017-08-01] MEDS: CEFAZOLIN 2,000 MG in DEXTROSE 5% 50 ML IV SCH ×3 (03:56→19:51)
[2017-08-01 07:43] VITALS: BP 129/90
[2017-08-01] MEDS: FAMOTIDINE 20 MG TABLET PO SCH ×2 (08:17→20:38)
[2017-08-01] MEDS: MUPIROCIN OINT 2%, 22GM TP SCH ×3 (08:17→21:18)
[2017-08-01] MEDS: POLYETHYLENE GLYCOL 17 GM PACKET PO SCH (08:17)
[2017-08-01] MEDS: FERROUS SULFATE 325 MG TABLET PO SCH ×3 (08:17→16:21)
[2017-08-01] MEDS: SENNA/DOCUSATE TABLET PO SCH (08:17)
[2017-08-01] MEDS: METHADONE 10 MG TABLET PO SCH ×3 (08:17→19:52)
[2017-08-01] MEDS: ENOXAPARIN 40 MG/0.4 ML SQ SCH (16:22)
[2017-08-01 17:41] VITALS: BP 157/87
[2017-08-01 18:40] VITALS: BP 128/88
[2017-08-02 03:30] VITALS: BP 122/80
[2017-08-02] MEDS: CEFAZOLIN 2,000 MG in DEXTROSE 5% 50 ML IV SCH ×3 (04:06→20:20)
[2017-08-02 08:00] VITALS: BP 116/77
[2017-08-02] MEDS: MUPIROCIN OINT 2%, 22GM TP SCH ×3 (08:02→20:19)
[2017-08-02] MEDS: POLYETHYLENE GLYCOL 17 GM PACKET PO SCH (08:08)
[2017-08-02] MEDS: FAMOTIDINE 20 MG TABLET PO SCH ×2 (08:08→20:19)
[2017-08-02] MEDS: METHADONE 10 MG TABLET PO SCH ×4 (08:08→20:20)
[2017-08-02] MEDS: FERROUS SULFATE 325 MG TABLET PO SCH ×3 (08:08→17:00)
[2017-08-02] MEDS: SENNA/DOCUSATE TABLET PO SCH (08:08)
[2017-08-02] MEDS: ENOXAPARIN 40 MG/0.4 ML SQ SCH (16:20)
[2017-08-02 21:08] VITALS: BP 126/86
[2017-08-03 03:40] VITALS: BP 112/74
[2017-08-03] MEDS: CEFAZOLIN 2,000 MG in DEXTROSE 5% 50 ML IV SCH ×3 (04:27→20:52)
[2017-08-03 08:21] VITALS: BP 119/67
[2017-08-03] MEDS: METHADONE 10 MG TABLET PO SCH ×3 (08:40→20:52)
[2017-08-03] MEDS: FERROUS SULFATE 325 MG TABLET PO SCH ×3 (08:41→16:32)
[2017-08-03] MEDS: SENNA/DOCUSATE TABLET PO SCH (08:41)
[2017-08-03] MEDS: FAMOTIDINE 20 MG TABLET PO SCH ×2 (08:42→20:52)
[2017-08-03] MEDS: POLYETHYLENE GLYCOL 17 GM PACKET PO SCH (08:43)
[2017-08-03] MEDS: MUPIROCIN OINT 2%, 22GM TP SCH ×3 (08:52→20:52)
[2017-08-03 13:17] VITALS: BP 125/84
[2017-08-03] MEDS: ENOXAPARIN 40 MG/0.4 ML SQ SCH (16:33)
[2017-08-03 20:35] VITALS: BP 125/85
[2017-08-04 01:26] VITALS: BP 121/83
[2017-08-04] MEDS: CEFAZOLIN 2,000 MG in DEXTROSE 5% 50 ML IV SCH (04:50)
[2017-08-04] MEDS: FERROUS SULFATE 325 MG TABLET PO SCH ×3 (08:03→16:34)
[2017-08-04] MEDS: METHADONE 10 MG TABLET PO SCH ×3 (08:03→19:45)
[2017-08-04] MEDS: POLYETHYLENE GLYCOL 17 GM PACKET PO SCH (08:03)
[2017-08-04] MEDS: SENNA/DOCUSATE TABLET PO SCH (08:03)
[2017-08-04] MEDS: FAMOTIDINE 20 MG TABLET PO SCH ×2 (08:03→19:45)
[2017-08-04 08:05] VITALS: BP 124/83
[2017-08-04] MEDS: MUPIROCIN OINT 2%, 22GM TP SCH ×3 (08:05→19:46)
[2017-08-04] MEDS: CEFAZOLIN PMX 2GM/50ML 50 ML IVPB SCH ×2 (12:41→21:05)
[2017-08-04 13:00] VITALS: BP 133/79
[2017-08-04] MEDS: ENOXAPARIN 40 MG/0.4 ML SQ SCH (16:34)
[2017-08-04 18:55] VITALS: BP 131/79
[2017-08-05 03:15] VITALS: BP 125/80
[2017-08-05] MEDS: CEFAZOLIN PMX 2GM/50ML 50 ML IVPB SCH ×3 (04:50→20:47)
[2017-08-05 07:13] VITALS: BP 123/82
[2017-08-05] MEDS: FERROUS SULFATE 325 MG TABLET PO SCH ×3 (08:24→16:54)
[2017-08-05] MEDS: POLYETHYLENE GLYCOL 17 GM PACKET PO SCH (08:24)
[2017-08-05] MEDS: MUPIROCIN OINT 2%, 22GM TP SCH ×3 (08:25→20:48)
[2017-08-05] MEDS: SENNA/DOCUSATE TABLET PO SCH (08:25)
[2017-08-05] MEDS: FAMOTIDINE 20 MG TABLET PO SCH ×2 (08:25→20:47)
[2017-08-05] MEDS: METHADONE 10 MG TABLET PO SCH ×3 (08:26→20:48)
[2017-08-05 13:29] VITALS: BP 127/78
[2017-08-05] MEDS: ENOXAPARIN 40 MG/0.4 ML SQ SCH (16:55)
[2017-08-05] MEDS ORDERED: LORazepam 2 MG/ML, 1ML IVPush ONE (18:30)
[2017-08-05 18:52] VITALS: BP 137/80
[2017-08-06] MEDS: ONDANSETRON 2MG/ML, 2ML IVPush PRN (01:26)
[2017-08-06 02:33] VITALS: BP 137/76
[2017-08-06] MEDS: CEFAZOLIN PMX 2GM/50ML 50 ML IVPB SCH ×3 (04:39→20:25)
[2017-08-06 07:10] VITALS: BP 139/86
[2017-08-06] MEDS: FERROUS SULFATE 325 MG TABLET PO SCH ×3 (07:31→16:25)
[2017-08-06] MEDS: FAMOTIDINE 20 MG TABLET PO SCH ×2 (07:31→20:23)
[2017-08-06] MEDS: METHADONE 10 MG TABLET PO SCH ×3 (07:32→20:23)
[2017-08-06] MEDS: MUPIROCIN OINT 2%, 22GM TP SCH ×4 (08:52→20:24)
[2017-08-06] MEDS: POLYETHYLENE GLYCOL 17 GM PACKET PO SCH (08:52)
[2017-08-06] MEDS: SENNA/DOCUSATE TABLET PO SCH (08:52)
[2017-08-06 14:41] VITALS: BP 136/88
[2017-08-06] MEDS: ENOXAPARIN 40 MG/0.4 ML SQ SCH (16:25)
[2017-08-06 18:44] VITALS: BP 136/85
[2017-08-07] MEDS ORDERED: LORazepam 2 MG/ML, 1ML IVPush ONE
[2017-08-07 01:51] VITALS: BP 124/87
[2017-08-07] MEDS: CEFAZOLIN PMX 2GM/50ML 50 ML IVPB SCH ×3 (04:41→21:05)
[2017-08-07 07:00] VITALS: BP 127/83
[2017-08-07] MEDS: METHADONE 10 MG TABLET PO SCH ×3 (08:21→21:05)
[2017-08-07] MEDS: FERROUS SULFATE 325 MG TABLET PO SCH ×3 (08:21→16:46)
[2017-08-07] MEDS: MUPIROCIN OINT 2%, 22GM TP SCH ×3 (08:22→21:06)
[2017-08-07] MEDS: FAMOTIDINE 20 MG TABLET PO SCH ×2 (08:22→21:05)
[2017-08-07] MEDS: SENNA/DOCUSATE TABLET PO SCH (08:22)
[2017-08-07] MEDS: POLYETHYLENE GLYCOL 17 GM PACKET PO SCH (08:23)
[2017-08-07 13:26] VITALS: BP 133/88
[2017-08-07] MEDS: ENOXAPARIN 40 MG/0.4 ML SQ SCH (16:46)
[2017-08-07 18:37] VITALS: BP 133/89
[2017-08-08 02:18] VITALS: BP 121/84
[2017-08-08] MEDS: CEFAZOLIN PMX 2GM/50ML 50 ML IVPB SCH ×2 (05:26→12:00)
[2017-08-08 08:46] VITALS: BP 152/85
[2017-08-08] MEDS: POLYETHYLENE GLYCOL 17 GM PACKET PO SCH (09:00)
[2017-08-08] MEDS: FERROUS SULFATE 325 MG TABLET PO SCH ×2 (09:32→12:00)
[2017-08-08] MEDS: FAMOTIDINE 20 MG TABLET PO SCH (09:32)
[2017-08-08] MEDS: SENNA/DOCUSATE TABLET PO SCH (09:32)
[2017-08-08] MEDS: METHADONE 10 MG TABLET PO SCH (09:33)
[2017-08-08] MEDS: MUPIROCIN OINT 2%, 22GM TP SCH (09:34)
[2017-08-08] MEDS ORDERED: TRAM50TA2 PO (10:06)
[2017-08-08] MEDS ORDERED: FERR-36 PO (10:06)
[2017-08-08] MEDS ORDERED: METH5TAB2 PO ×2 (10:06→10:07)
== END 2017-08-08 12:57 | disposition home or self-care (01) | DRG 871 ==
LOC: ED 15:17 → EDIP 16:14 → 3NE 18:10
PROVIDERS: ADMIT Internal Medicine; ATTEND Internal Medicine
DX: A41.01 Sepsis due to Methicillin susceptible Staphylococcus aureus (principal); E43 Unspecified severe protein-calorie malnutrition; G06.2 Extradural and subdural abscess, unspecified; J90 Pleural effusion, not elsewhere classified; M60.08 Infective myositis, other site; J18.9 Pneumonia, unspecified organism; K68.12 Psoas muscle abscess; B19.10 Unspecified viral hepatitis B without hepatic coma; F11.23 Opioid dependence with withdrawal; F15.23 Other stimulant dependence with withdrawal; B19.20 Unspecified viral hepatitis C without hepatic coma; D50.9 Iron deficiency anemia, unspecified; N28.1 Cyst of kidney, acquired; E83.39 Other disorders of phosphorus metabolism; L29.9 Pruritus, unspecified; M48.061 Spinal stenosis, lumbar region without neurogenic claudication; Z87.891 Personal history of nicotine dependence; Z91.19 Patient's noncompliance with other medical treatment and regimen; Z87.81 Personal history of (healed) traumatic fracture; Z68.28 Body mass index [BMI] 28.0-28.9, adult
CPT/HCPCS: 36415; 71010; 80048; 80307; 82040; 83735; 84100; 84484; 85025; 85651; 93005; 94640; J0690; J1644; J1650; J1885; J2405; J7613; Q0162; G0479; J2060; J7030; S0028

== ENCOUNTER 2017-08-08 21:50 | Emergency (ER) | payer MEDICAID ==
[~2017-08-08] VITALS: Ht 185.4 cm; Wt 95.8 kg
[~2017-08-08 21:50] MED LIST: FERR-36 PO; METH5TAB2 PO; TRAM50TA2 PO
[2017-08-08 21:54] VITALS: BP 161/97
[2017-08-08] MEDS ORDERED: morphine SULFATE 10 MG/ML, 1ML ONE (22:26)
[2017-08-08] MEDS ORDERED: morphine SULFATE 10 MG/ML, 1ML IVPush PRN (22:30)
[2017-08-08 22:42] LABS: HEMATOCRIT 41.3 % (39.2-51.8); HEMOGLOBIN 13.9 g/dL (13.7-18.0); WHITE BLOOD COUNT 8.4 x10^3/uL (3.4-10)
[2017-08-08 22:55] LABS: BLOOD UREA NITROGEN 14 mg/dL (7-18)
[2017-08-08 22:58] LABS: ASPARTATE AMINO TRANSFERASE 82 U/L (15-37)
[2017-08-08] MEDS ORDERED: HYDROcodone/APAP 10/325 MG TABLET PO ONE (23:30)
== END 2017-08-09 00:11 | disposition home or self-care (01) ==
LOC: ED 22:57
DX: Z00.00 Encounter for general adult medical examination without abnormal findings (principal)
CPT/HCPCS: 36415; 80053; 81001; 85025; 96374; 99284; J2270